=== PATIENT | female | born 1960 | race Caucasian/White ===

== ENCOUNTER 2017-12-01 20:02 | Inpatient (IN) | payer BC ==
[2017-12-01 23:09] LABS: ADD MAN DIFF? NO
[2017-12-01] MEDS: SOD CHLORIDE 0.9% 1,000 ML IV (23:13)
[2017-12-01 23:15] LABS: BASOPHILS % 0.2 % (0.0-2.0); HEMATOCRIT 27.1 % (37.0-47.0); HEMOGLOBIN 8.7 g/dl (12.0-16.0); LYMPHOCYTES # 2.1 10^3/ul (0.8-2.9); LYMPHOCYTES % 20.7 % (15.0-51.0); MEAN CORPUSCULAR HEMOGLOBIN 23.7 pg (29.0-33.0); MEAN CORPUSCULAR HGB CONC 32.1 g/dl (32.0-37.0); MEAN CORPUSCULAR VOLUME 73.8 fl (82.0-101.0); MEAN PLATELET VOLUME 9.6 fl (7.4-10.4); MONOCYTE # 0.9 10^3/ul (0.3-0.9); MONOCYTES % 8.7 % (0.0-11.0); PLATELET COUNT 426 10^3/UL (140-415); RED BLOOD COUNT 3.67 10^6/ul (4.20-5.40); RED CELL DISTRIBUTION WIDTH 17.1 % (11.5-14.5)
[2017-12-01 23:34] LABS: ADD UMIC YES; UR AMORPHOUS CRYSTAL FEW /HPF (NONE SEEN); UR ASCORBIC ACID NEGATIVE (NEGATIVE); UR BACTERIA FEW /HPF (NONE SEEN); UR BILIRUBIN (Dip) NEGATIVE (NEGATIVE); UR BLOOD (Dip) NEGATIVE (NEGATIVE); UR CLARITY CLOUDY (CLEAR); UR COLOR YELLOW (YELLOW); UR GLUCOSE (Dip) NEGATIVE (NEGATIVE); UR KETONES (Dip) NEGATIVE (NEGATIVE); UR LEUKOCYTE ESTERASE (Dip) 1+ Leu/ul (NEGATIVE); UR MUCUS FEW /HPF (NONE SEEN); UR NITRITE (Dip) NEGATIVE (NEGATIVE); UR NONSQUAMOUS EPITHELIAL CELL 3 /HPF (NONE SEEN); UR RBC 3 /HPF (0-5); UR SPECIFIC GRAVITY (Dip) 1.012 (1.003-1.030); UR SQUAMOUS EPITHELIAL CELL MANY /HPF (FEW); UR TOTAL PROTEIN (Dip) 1+ mg/dl (NEGATIVE); UR UROBILINOGEN (Dip) NEGATIVE (NEGATIVE); UR WBC 8 /HPF (0-5)
[2017-12-01 23:39] LABS: ALANINE AMINOTRANSFERASE 27 IU/L (13-69); ALBUMIN 4.3 g/dl (3.3-4.9); ALBUMIN/GLOBULIN RATIO 1.16; ALKALINE PHOSPHATASE 192 IU/L (42-121); ANION GAP 14 (8-16); ASPARTATE AMINO TRANSFERASE 41 IU/L (15-46); BILIRUBIN,INDIRECT 0.1 mg/dl (0-1.1); BILIRUBIN,TOTAL 0.1 mg/dl (0.2-1.3); BLOOD UREA NITROGEN 37 mg/dl (7-20); CALCIUM 9.6 mg/dl (8.4-10.2); CARBON DIOXIDE 36 mmol/L (21-31); CREATININE 1.81 mg/dl (0.44-1.00); GLUCOSE 108 mg/dl (70-220); LIPASE 58 U/L (23-300)
[2017-12-01 23:51] LABS: B-TYPE NATRIURETIC PEPTIDE 536 PG/ML (0-125); TROPONIN-I 0.016 ng/ml (0.00-0.12)
[2017-12-02 00:01] LABS: CHLORIDE 66 mmol/L (97-110); POTASSIUM 2.6 mmol/L (3.5-5.1); SODIUM 113 mmol/L (135-144)
[2017-12-02] MEDS: POTASSIUM CHLORIDE 50 ML IVPB ×4 (00:53→05:05)
[2017-12-02] MEDS: CYCLOBENZAPRINE 10 MG TAB PO ×2 (01:04→21:54)
[2017-12-02] MEDS ORDERED: ACETAMINOPHEN 650MG/20.3ML CUP PO (02:30)
[2017-12-02] MEDS ORDERED: ONDANSETRON 4 MG INJ IV (02:30)
[2017-12-02 04:01] LABS: ALANINE AMINOTRANSFERASE 32 IU/L (13-69); ALBUMIN 3.6 g/dl (3.3-4.9); ALBUMIN/GLOBULIN RATIO 1.28; ALKALINE PHOSPHATASE 150 IU/L (42-121); ANION GAP 14 (8-16); ASPARTATE AMINO TRANSFERASE 31 IU/L (15-46); BILIRUBIN,INDIRECT 0.1 mg/dl (0-1.1); BILIRUBIN,TOTAL 0.1 mg/dl (0.2-1.3); BLOOD UREA NITROGEN 36 mg/dl (7-20); CALCIUM 8.7 mg/dl (8.4-10.2); CARBON DIOXIDE 31 mmol/L (21-31); CHLORIDE 73 mmol/L (97-110); GLUCOSE 105 mg/dl (70-220); TOTAL PROTEIN 6.4 g/dl (6.1-8.1)
[2017-12-02 04:37] LABS: SODIUM 115 mmol/L (135-144)
[2017-12-02] MEDS: CEFTRIAXONE 1 GM/50 ML (PMX) 50 ML IVPB (05:05)
[2017-12-02] MEDS: PANTOPRAZOLE 40 MG INJ IV (06:00)
[2017-12-02 06:24] LABS: MAGNESIUM 3.6 mg/dl (1.7-2.5)
[2017-12-02 06:26] LABS: ANION GAP 10 (8-16); BLOOD UREA NITROGEN 39 mg/dl (7-20); CALCIUM 8.5 mg/dl (8.4-10.2); CARBON DIOXIDE 34 mmol/L (21-31); CHLORIDE 74 mmol/L (97-110); CREATININE 1.98 mg/dl (0.44-1.00); GLUCOSE 89 mg/dl (70-220)
[2017-12-02] MEDS ORDERED: NACL 3% 500 ML IV (06:30)
[2017-12-02] MEDS: POTASSIUM PHOSPHATE 40 MEQ in SOD CHLORIDE 0.9% 250 ML IVPB (06:30)
[2017-12-02] MEDS: NACL 3% 500 ML IV (06:30)
[2017-12-02 06:40] LABS: SODIUM 115 mmol/L (135-144)
[2017-12-02 06:45] LABS: POTASSIUM 2.6 mmol/L (3.5-5.1)
[2017-12-02] MEDS: POTASSIUM CHLORIDE (SR) 20 MEQ TAB PO ×2 (07:03→21:54)
[2017-12-02 07:42] LABS: OSMOLALITY 250 mOsm/kg (280-295)
[2017-12-02 09:01] LABS: ANION GAP 14 (8-16); BLOOD UREA NITROGEN 40 mg/dl (7-20); CALCIUM 8.5 mg/dl (8.4-10.2); CARBON DIOXIDE 29 mmol/L (21-31); CHLORIDE 74 mmol/L (97-110); CREATININE 1.84 mg/dl (0.44-1.00); GLUCOSE 93 mg/dl (70-220)
[2017-12-02 09:03] LABS: POTASSIUM 2.8 mmol/L (3.5-5.1); SODIUM 114 mmol/L (135-144)
[2017-12-02 10:14] LABS: ANION GAP 9 (8-16); BLOOD UREA NITROGEN 39 mg/dl (7-20); CALCIUM 8.5 mg/dl (8.4-10.2); CARBON DIOXIDE 34 mmol/L (21-31); CHLORIDE 74 mmol/L (97-110); CREATININE 1.85 mg/dl (0.44-1.00); GLUCOSE 100 mg/dl (70-220)
[2017-12-02 10:22] LABS: SODIUM 114 mmol/L (135-144)
[2017-12-02 10:23] LABS: POTASSIUM 2.8 mmol/L (3.5-5.1)
[2017-12-02 11:55] LABS: ANION GAP 12 (8-16); BLOOD UREA NITROGEN 39 mg/dl (7-20); CALCIUM 8.7 mg/dl (8.4-10.2); CARBON DIOXIDE 34 mmol/L (21-31); CHLORIDE 75 mmol/L (97-110); CREATININE 1.76 mg/dl (0.44-1.00); GLUCOSE 103 mg/dl (70-220); POTASSIUM 3.6 mmol/L (3.5-5.1)
[2017-12-02 11:59] LABS: SODIUM 117 mmol/L (135-144)
[2017-12-02 12:48] LABS: ADD UMIC NO; UR ASCORBIC ACID NEGATIVE (NEGATIVE); UR BILIRUBIN (Dip) NEGATIVE (NEGATIVE); UR BLOOD (Dip) NEGATIVE (NEGATIVE); UR CLARITY CLEAR (CLEAR); UR COLOR YELLOW (YELLOW); UR GLUCOSE (Dip) NEGATIVE (NEGATIVE); UR KETONES (Dip) NEGATIVE (NEGATIVE); UR LEUKOCYTE ESTERASE (Dip) NEGATIVE Leu/ul (NEGATIVE); UR NITRITE (Dip) NEGATIVE (NEGATIVE); UR SPECIFIC GRAVITY (Dip) 1.004 (1.003-1.030); UR TOTAL PROTEIN (Dip) NEGATIVE (NEGATIVE); UR UROBILINOGEN (Dip) NEGATIVE (NEGATIVE)
[2017-12-02 13:05] LABS: CREATININE,URINE RANDOM 38.76 mg/dl (20-320)
[2017-12-02 13:05] LABS: SODIUM,URINE RANDOM < 13 mmol/L (30-90)
[2017-12-02 13:19] LABS: ANION GAP 13 (8-16); BLOOD UREA NITROGEN 38 mg/dl (7-20); CALCIUM 8.7 mg/dl (8.4-10.2); CARBON DIOXIDE 33 mmol/L (21-31); CHLORIDE 77 mmol/L (97-110); CREATININE 1.65 mg/dl (0.44-1.00); GLUCOSE 100 mg/dl (70-220); POTASSIUM 3.8 mmol/L (3.5-5.1)
[2017-12-02 13:23] LABS: SODIUM 119 mmol/L (135-144)
[2017-12-02] MEDS: LIDOCAINE 5% PATCH TD (15:52)
[2017-12-02 16:20] LABS: ANION GAP 14 (8-16)
[2017-12-02 16:23] LABS: BLOOD UREA NITROGEN 35 mg/dl (7-20); CALCIUM 8.4 mg/dl (8.4-10.2); CARBON DIOXIDE 31 mmol/L (21-31); CHLORIDE 80 mmol/L (97-110); CREATININE 1.56 mg/dl (0.44-1.00); GLUCOSE 95 mg/dl (70-220); POTASSIUM 3.5 mmol/L (3.5-5.1); SODIUM 121 mmol/L (135-144)
[2017-12-02] MEDS: SUCRALFATE 1 GM TAB PO ×2 (17:35→21:54)
[2017-12-02 19:08] LABS: ANION GAP 13 (8-16); BLOOD UREA NITROGEN 35 mg/dl (7-20); CALCIUM 8.9 mg/dl (8.4-10.2); CARBON DIOXIDE 32 mmol/L (21-31); CHLORIDE 80 mmol/L (97-110); CREATININE 1.44 mg/dl (0.44-1.00); GLUCOSE 123 mg/dl (70-220); POTASSIUM 3.9 mmol/L (3.5-5.1); SODIUM 121 mmol/L (135-144)
[2017-12-02 20:49] LABS: ANION GAP 13 (8-16); BLOOD UREA NITROGEN 33 mg/dl (7-20); CALCIUM 8.6 mg/dl (8.4-10.2); CARBON DIOXIDE 28 mmol/L (21-31); CHLORIDE 80 mmol/L (97-110); CREATININE 1.38 mg/dl (0.44-1.00); GLUCOSE 155 mg/dl (70-220); POTASSIUM 3.3 mmol/L (3.5-5.1)
[2017-12-02 21:21] LABS: SODIUM 118 mmol/L (135-144)
[2017-12-02 21:52] LABS: OSMOLALITY,URINE 123 mOsm/kg (250-1200)
[2017-12-02] MEDS: GABAPENTIN 300 MG CAP PO (21:54)
[2017-12-02 22:38] LABS: ANION GAP 12 (8-16); BLOOD UREA NITROGEN 33 mg/dl (7-20); CALCIUM 8.5 mg/dl (8.4-10.2); CARBON DIOXIDE 30 mmol/L (21-31); CHLORIDE 79 mmol/L (97-110); CREATININE 1.41 mg/dl (0.44-1.00); GLUCOSE 93 mg/dl (70-220); POTASSIUM 3.5 mmol/L (3.5-5.1)
[2017-12-02 22:42] LABS: SODIUM 117 mmol/L (135-144)
[2017-12-03 01:06] LABS: ANION GAP 11 (8-16); BLOOD UREA NITROGEN 33 mg/dl (7-20); CALCIUM 8.5 mg/dl (8.4-10.2); CARBON DIOXIDE 29 mmol/L (21-31); CHLORIDE 82 mmol/L (97-110); GLUCOSE 81 mg/dl (70-220)
[2017-12-03 01:18] LABS: SODIUM 118 mmol/L (135-144)
[2017-12-03] MEDS: CEFTRIAXONE 1 GM/50 ML (PMX) 50 ML IVPB (03:46)
[2017-12-03] MEDS: PANTOPRAZOLE 40 MG INJ IV (05:20)
[2017-12-03] MEDS: CYCLOBENZAPRINE 10 MG TAB PO ×2 (05:21→22:25)
[2017-12-03 08:12] LABS: ADD MAN DIFF? NO
[2017-12-03 08:16] LABS: BASOPHILS % 0.2 % (0.0-2.0); EOSINOPHILS # 0.1 10^3/ul (0.0-0.5); EOSINOPHILS % 0.8 % (0.0-7.0); HEMATOCRIT 22.5 % (37.0-47.0); LYMPHOCYTES # 1.6 10^3/ul (0.8-2.9); LYMPHOCYTES % 25.8 % (15.0-51.0); MEAN CORPUSCULAR HEMOGLOBIN 23.8 pg (29.0-33.0); MEAN CORPUSCULAR HGB CONC 31.1 g/dl (32.0-37.0); MEAN CORPUSCULAR VOLUME 76.5 fl (82.0-101.0); MONOCYTE # 0.9 10^3/ul (0.3-0.9); MONOCYTES % 13.8 % (0.0-11.0); NEUTROPHIL # 3.7 10^3/ul (1.6-7.5); NEUTROPHILS % 59.1 % (39.0-77.0); PLATELET COUNT 339 10^3/UL (140-415); RED BLOOD COUNT 2.94 10^6/ul (4.20-5.40); RED CELL DISTRIBUTION WIDTH 17.5 % (11.5-14.5)
[2017-12-03 08:16] LABS: WHITE BLOOD COUNT 6.3 10^3/ul (4.8-10.8)
[2017-12-03] MEDS: LORATADINE 10 MG TAB PO (08:22)
[2017-12-03] MEDS: SUCRALFATE 1 GM TAB PO ×4 (08:22→21:04)
[2017-12-03] MEDS: LIDOCAINE 5% PATCH TD (08:26)
[2017-12-03 08:49] LABS: MAGNESIUM 2.9 mg/dl (1.7-2.5)
[2017-12-03 08:50] LABS: BLOOD UREA NITROGEN 28 mg/dl (7-20); CARBON DIOXIDE 31 mmol/L (21-31); CHLORIDE 85 mmol/L (97-110); CREATININE 1.31 mg/dl (0.44-1.00); GLUCOSE 88 mg/dl (70-220)
[2017-12-03 08:52] LABS: ANION GAP 11 (8-16)
[2017-12-03 09:00] LABS: SODIUM 123 mmol/L (135-144)
[2017-12-03 09:01] LABS: CALCIUM 8.9 mg/dl (8.4-10.2); PHOSPHORUS 3.8 mg/dl (2.5-4.9); POTASSIUM 4.1 mmol/L (3.5-5.1)
[2017-12-03 16:31] LABS: CREATININE, RANDOM URINE 45 mg/dL (20-320); MICROALBUMIN 3.4 mg/dL; MICROALBUMIN/CREATININE RATIO 76 (<30)
[2017-12-03 17:15] LABS: ANION GAP 13 (8-16); BLOOD UREA NITROGEN 30 mg/dl (7-20); CALCIUM 8.8 mg/dl (8.4-10.2); CARBON DIOXIDE 29 mmol/L (21-31); CHLORIDE 82 mmol/L (97-110); CREATININE 1.36 mg/dl (0.44-1.00); GLUCOSE 77 mg/dl (70-220); POTASSIUM 4.1 mmol/L (3.5-5.1); SODIUM 120 mmol/L (135-144)
[2017-12-03] MEDS: SOD CHLORIDE 0.9% 1,000 ML IV (18:33)
[2017-12-03 20:26] LABS: ANION GAP 13 (8-16); BLOOD UREA NITROGEN 28 mg/dl (7-20); CARBON DIOXIDE 28 mmol/L (21-31); CHLORIDE 83 mmol/L (97-110); CREATININE 1.37 mg/dl (0.44-1.00); GLUCOSE 118 mg/dl (70-220); POTASSIUM 4.4 mmol/L (3.5-5.1); SODIUM 120 mmol/L (135-144)
[2017-12-03] MEDS: GABAPENTIN 300 MG CAP PO (21:05)
[2017-12-04] MEDS: CEFTRIAXONE 1 GM/50 ML (PMX) 50 ML IVPB (02:39)
[2017-12-04] MEDS: PANTOPRAZOLE 40 MG INJ IV (05:46)
[2017-12-04] MEDS: SUCRALFATE 1 GM TAB PO ×4 (08:29→20:14)
[2017-12-04] MEDS: LORATADINE 10 MG TAB PO (08:29)
[2017-12-04] MEDS: LIDOCAINE 5% PATCH TD (08:30)
[2017-12-04 09:04] LABS: ADD MAN DIFF? NO
[2017-12-04 09:10] LABS: BASOPHILS % 0.4 % (0.0-2.0); EOSINOPHILS # 0.1 10^3/ul (0.0-0.5); EOSINOPHILS % 1.3 % (0.0-7.0); HEMATOCRIT 25.5 % (37.0-47.0); HEMOGLOBIN 7.9 g/dl (12.0-16.0); LYMPHOCYTES # 1.5 10^3/ul (0.8-2.9); LYMPHOCYTES % 26.3 % (15.0-51.0); MEAN CORPUSCULAR VOLUME 77.5 fl (82.0-101.0); MEAN PLATELET VOLUME 8.7 fl (7.4-10.4); MONOCYTE # 0.7 10^3/ul (0.3-0.9); NEUTROPHIL # 3.3 10^3/ul (1.6-7.5); NEUTROPHILS % 59.6 % (39.0-77.0); PLATELET COUNT 368 10^3/UL (140-415); RED BLOOD COUNT 3.29 10^6/ul (4.20-5.40); RED CELL DISTRIBUTION WIDTH 17.8 % (11.5-14.5)
[2017-12-04 09:10] LABS: WHITE BLOOD COUNT 5.5 10^3/ul (4.8-10.8)
[2017-12-04 09:30] LABS: MAGNESIUM 2.2 mg/dl (1.7-2.5)
[2017-12-04 09:35] LABS: ANION GAP 14 (8-16); BLOOD UREA NITROGEN 22 mg/dl (7-20); CALCIUM 9.5 mg/dl (8.4-10.2); CARBON DIOXIDE 28 mmol/L (21-31); CHLORIDE 90 mmol/L (97-110); CREATININE 1.16 mg/dl (0.44-1.00); GLUCOSE 92 mg/dl (70-220); PHOSPHORUS 3.8 mg/dl (2.5-4.9); POTASSIUM 3.8 mmol/L (3.5-5.1); SODIUM 128 mmol/L (135-144)
[2017-12-04 10:41] LABS: ALDOSTERONE <1 ng/dL
[2017-12-04] MEDS: CYCLOBENZAPRINE 10 MG TAB PO ×2 (11:19→20:14)
[2017-12-04 15:19] LABS: ANION GAP 12 (8-16); BLOOD UREA NITROGEN 22 mg/dl (7-20); CALCIUM 9.4 mg/dl (8.4-10.2); CARBON DIOXIDE 28 mmol/L (21-31); CHLORIDE 90 mmol/L (97-110); CREATININE 1.26 mg/dl (0.44-1.00); GLUCOSE 113 mg/dl (70-220); POTASSIUM 4.4 mmol/L (3.5-5.1); SODIUM 126 mmol/L (135-144)
[2017-12-04] MEDS: SOD CHLORIDE 0.9% 1,000 ML IV ×2 (16:04→23:15)
[2017-12-04] MEDS: GABAPENTIN 300 MG CAP PO (20:15)
[2017-12-05] MEDS: CEFTRIAXONE 1 GM/50 ML (PMX) 50 ML IVPB (02:13)
[2017-12-05] MEDS: PANTOPRAZOLE 40 MG INJ IV (05:14)
[2017-12-05 07:45] LABS: ADD MAN DIFF? NO
[2017-12-05 07:50] LABS: BASOPHILS % 0.4 % (0.0-2.0); EOSINOPHILS # 0.1 10^3/ul (0.0-0.5); HEMATOCRIT 24.5 % (37.0-47.0); HEMOGLOBIN 7.4 g/dl (12.0-16.0); LYMPHOCYTES # 1.6 10^3/ul (0.8-2.9); LYMPHOCYTES % 31.3 % (15.0-51.0); MEAN CORPUSCULAR HEMOGLOBIN 23.7 pg (29.0-33.0); MEAN CORPUSCULAR HGB CONC 30.2 g/dl (32.0-37.0); MEAN CORPUSCULAR VOLUME 78.5 fl (82.0-101.0); MEAN PLATELET VOLUME 8.8 fl (7.4-10.4); MONOCYTE # 0.7 10^3/ul (0.3-0.9); MONOCYTES % 12.7 % (0.0-11.0); NEUTROPHIL # 2.8 10^3/ul (1.6-7.5); NEUTROPHILS % 54.4 % (39.0-77.0); PLATELET COUNT 349 10^3/UL (140-415); RED BLOOD COUNT 3.12 10^6/ul (4.20-5.40)
[2017-12-05 07:50] LABS: WHITE BLOOD COUNT 5.2 10^3/ul (4.8-10.8)
[2017-12-05 08:00] LABS: MAGNESIUM 1.8 mg/dl (1.7-2.5)
[2017-12-05 08:17] LABS: ANION GAP 11 (8-16); BLOOD UREA NITROGEN 19 mg/dl (7-20); CALCIUM 9.4 mg/dl (8.4-10.2); CARBON DIOXIDE 28 mmol/L (21-31); CHLORIDE 95 mmol/L (97-110); CREATININE 1.05 mg/dl (0.44-1.00); GLUCOSE 80 mg/dl (70-220); PHOSPHORUS 3.9 mg/dl (2.5-4.9); POTASSIUM 4.5 mmol/L (3.5-5.1); SODIUM 129 mmol/L (135-144)
[2017-12-05] MEDS: LORATADINE 10 MG TAB PO (09:25)
[2017-12-05] MEDS: SUCRALFATE 1 GM TAB PO ×4 (09:25→20:37)
[2017-12-05] MEDS: LIDOCAINE 5% PATCH TD (09:26)
[2017-12-05] MEDS: SOD CHLORIDE 0.9% 1,000 ML IV ×2 (12:00→20:38)
[2017-12-05] MEDS: CYCLOBENZAPRINE 10 MG TAB PO (12:43)
[2017-12-05 13:35] LABS: ANION GAP 12 (8-16); BLOOD UREA NITROGEN 20 mg/dl (7-20); CALCIUM 9.4 mg/dl (8.4-10.2); CARBON DIOXIDE 27 mmol/L (21-31); CHLORIDE 95 mmol/L (97-110); CREATININE 1.08 mg/dl (0.44-1.00); GLUCOSE 81 mg/dl (70-220); PHOSPHORUS 3.9 mg/dl (2.5-4.9); POTASSIUM 4.5 mmol/L (3.5-5.1); SODIUM 129 mmol/L (135-144)
[2017-12-05] MEDS: GABAPENTIN 300 MG CAP PO (20:37)
[2017-12-06 00:59] LABS: ALBUMIN 3.1 g/dl (3.3-4.9); ANION GAP 9 (8-16); BLOOD UREA NITROGEN 16 mg/dl (7-20); CALCIUM 9.3 mg/dl (8.4-10.2); CARBON DIOXIDE 25 mmol/L (21-31); CHLORIDE 99 mmol/L (97-110); GLUCOSE 86 mg/dl (70-220); PHOSPHORUS 3.7 mg/dl (2.5-4.9); POTASSIUM 3.8 mmol/L (3.5-5.1); SODIUM 129 mmol/L (135-144)
[2017-12-06] MEDS: CEFTRIAXONE 1 GM/50 ML (PMX) 50 ML IVPB (01:54)
[2017-12-06] MEDS: PANTOPRAZOLE 40 MG INJ IV (05:03)
[2017-12-06 07:48] LABS: MAGNESIUM 1.5 mg/dl (1.7-2.5)
[2017-12-06] MEDS: SUCRALFATE 1 GM TAB PO ×2 (08:08→12:49)
[2017-12-06] MEDS: SOD CHLORIDE 0.9% 1,000 ML IV (08:08)
[2017-12-06] MEDS: LORATADINE 10 MG TAB PO (08:30)
[2017-12-06] MEDS: LIDOCAINE 5% PATCH TD (08:33)
[2017-12-06] MEDS: MAGNESIUM OXIDE 400 MG TAB PO (12:48)
[2017-12-08 13:31] LABS: RENIN, PLASMA 52.76 ng/mL/h (0.25-5.82)
[2017-12-10 03:10] LABS: POTASSIUM 2.6 mmol/L (3.5-5.1)
== END 2017-12-06 13:10 | disposition home or self-care (01) | DRG 641 ==
LOC: MS4 12-02 00:26 → E/R 20:02
DX: E87.1 Hypo-osmolality and hyponatremia (principal); N17.9 Acute kidney failure, unspecified; N18.4 Chronic kidney disease, stage 4 (severe); E87.3 Alkalosis; N39.0 Urinary tract infection, site not specified; I12.9 Hypertensive chronic kidney disease with stage 1 through stage 4 chronic kidney disease, or unspecified chronic kidney disease; D64.9 Anemia, unspecified; E87.6 Hypokalemia; F17.200 Nicotine dependence, unspecified, uncomplicated; M19.90 Unspecified osteoarthritis, unspecified site; M79.605 Pain in left leg; M79.604 Pain in right leg; Z91.81 History of falling
CPT/HCPCS: 36415; 70450; 71045; 76775; 80048; 80053; 80069; 81001; 81003; 82043; 82088; 83690; 83735; 83880; 83930; 83935; 84100; 84155; 84244; 84300; 84484; 85025; 93005; 93306; 93970; 96374; 96375; 96376; 99291-25